=== PATIENT | female | born 1985 | race Caucasian/White ===

== ENCOUNTER 2020-04-19 09:35 | Emergency (ER) | payer OTHER ==
[~2020-04-19] VITALS: Ht 165.1 cm; Wt 63.5 kg
[~2020-04-19 09:35] MED LIST: LEVAQUIN750 MG; LOESTRIN1 EAC1; PROAIR HFA INH8.5 GM
[2020-04-19] MEDS ORDERED: ALBUTEROL SULF 0.083% NEB SOLN 3 ML NEB NEB NR (10:00)
[2020-04-19] MEDS ORDERED: IPRATROPIUM BROMIDE 0.02% 2.5 ML NEB NEB ONE (10:00)
[2020-04-19] MEDS ORDERED: DEXAMETHASONE SOD PHOS 10 MG/1 ML VIAL IM NR (10:00)
[2020-04-19] MEDS ORDERED: IPRATROPIUM BROMIDE 0.02% 2.5 ML NEB ONE (10:18)
[2020-04-19 12:09] VITALS: BP 140/90
== END 2020-04-19 12:11 | disposition home or self-care (01) ==
LOC: ER 10:45
DX: J45.909 Unspecified asthma, uncomplicated (principal); R06.02 Shortness of breath
CPT/HCPCS: 71045; 94640; 99284; J1100